=== PATIENT | male | born 1955 | race Caucasian/White ===

== ENCOUNTER 2025-07-21 10:20 | Outpatient (CLI) | payer MEDICARE | END 2025-07-21 10:21 | disposition home or self-care (01) | LOC: SCSMRI 10:20 | PROVIDERS: ATTEND Orthopaedic Surgery | DX: M47.27 Other spondylosis with radiculopathy, lumbosacral region (principal); M43.16 Spondylolisthesis, lumbar region; R93.7 Abnormal findings on diagnostic imaging of other parts of musculoskeletal system; M47.25 Other spondylosis with radiculopathy, thoracolumbar region; M25.78 Osteophyte, vertebrae; M48.061 Spinal stenosis, lumbar region without neurogenic claudication; M24.28 Disorder of ligament, vertebrae; M51.26 Other intervertebral disc displacement, lumbar region; M48.07 Spinal stenosis, lumbosacral region; Z98.890 Other specified postprocedural states | CPT/HCPCS: 36415; 72148; G0103 ==